=== PATIENT | male | born 1995 | race Two or more races ===

== ENCOUNTER 2018-09-11 15:51 | Emergency (ER) | payer SELFPAY ==
[~2018-09-11] VITALS: Ht 167.6 cm; Wt 65.0 kg
[2018-09-11 15:57] VITALS: BP 138/74
== END 2018-09-11 18:54 | disposition left against medical advice (07) ==
LOC: ER 15:51
DX: Z53.21 Procedure and treatment not carried out due to patient leaving prior to being seen by health care provider (principal)